=== PATIENT | male | born 1975 | race Caucasian/White ===

== ENCOUNTER 2018-03-31 01:53 | Emergency (ER) | payer SELFPAY ==
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
[2018-03-31] MEDS: KEFLEX 500 MG PO ONE (04:22)
[2018-03-31] MEDS ORDERED: KEFLEX 500 MG ONE (04:22)
[2018-03-31] MEDS ORDERED: BACIGUENT PACKET ONE (04:33)
[2018-03-31] MEDS: BACIGUENT PACKET TP ONE (04:34)
[2018-03-31] MEDS: Bactroban OINTMENT TP ONE (04:46)
[2018-03-31 04:51] VITALS: BP 118/65; PULSE 86; O2SAT 97
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
== END 2018-03-31 04:41 | disposition home or self-care (01) ==
LOC: ED 01:53
DX: S81.032A Puncture wound without foreign body, left knee, initial encounter (principal); W45.0XXA Nail entering through skin, initial encounter
CPT/HCPCS: 73562; 99283; A9270-GY

== ENCOUNTER 2018-04-06 03:38 | Emergency (ER) | payer SELFPAY ==
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
[2018-04-06 04:22] LABS: Basophil (Absolute #) 0.06 (0-0.4); Eosinophil % 2.2 % (0.00-5.0); Eosinophil (Absolute #) 0.13 (0-0.5); Granulocyte Absolute (ANC) 3.18 (1.4-6.9); Granulocytes % 52.5 % (36.0-66.0); Hematocrit 35.2 % (42-50); Hemoglobin 11.7 gm/dl (12.5-18.0); Lymphocyte (Absolute #) 2.22 (1.0-4.6); Lymphocytes % 36.8 % (24.0-44.0); Mean Cell Volume 98.9 fl (78-100); Mean Corpuscular Hgb Concent. 33.2 g/dl (32-36); Mean Platelet Volume 9.9 fl (6-9.5); Monocyte (Absolute #) 0.45 (0.0-1.3); Monocytes % 7.5 % (0.0-12.0); Platelet Count 322 K/mm3 (150-450); Red Blood Count 3.56 M/mm3 (4.1-5.6); Red Cell Distribution Width 14.1 % (11.5-14.0)
[2018-04-06 04:40] LABS: ALBUMIN 4.6 g/dL (3.5-5.0); ALKALINE PHOSPHATASE 48 U/L (38-126); ANION GAP 16.9 MEQ/L (5-15); BLOOD UREA NITROGEN 15 mg/dL (9-20); CHLORIDE 112 mmol/L (98-107); Calcium 9.1 mg/dL (8.4-10.2); Carbon Dioxide 23 mmol/L (22-30); ETHYL ALCOHOL 223 mg/dL (0-10); Glucose 94 mg/dL (74-106); Potassium 4.2 mmol/L (3.5-5.1); SGOT/AST 25 U/L (17-59); SGPT/ALT 18 U/L (0-50); SODIUM 148 mmol/L (137-145); Total Protein 7.1 g/dL (6.3-8.2)
[2018-04-06 04:49] LABS: ACETAMINOPHEN < 10 ug/ml (10-30); SALICYLATE < 1.0 mg/dL (2-20)
[2018-04-06 04:50] LABS: Mean Corpuscular Hemoglobin 32.8 pg (26-32)
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
[2018-04-06 08:41] LABS: Amphetamine,Urine POSITIVE (NEGATIVE); Barbiturate,Urine NEGATIVE (NEGATIVE); Benzodiazepine,Urine POSITIVE (NEGATIVE); Cocaine,Urine NEGATIVE (NEGATIVE); Methadone,Urine NEGATIVE (NEGATIVE); Opiate,Urine NEGATIVE (NEGATIVE); PCP,Urine NEGATIVE (NEGATIVE); THC,Urine POSITIVE (NEGATIVE)
[2018-04-06 08:43] VITALS: BP 123/67
[2018-04-06] MEDS ORDERED: VITAMIN B-1 100 MG PO ONE (09:25)
[2018-04-06 09:29] VITALS: PULSE 88; O2SAT 98
[2018-04-06] MEDS ORDERED: Nicoderm CQ 21 MG TOP ONE (09:31)
== END 2018-04-06 10:19 | disposition short-term general hospital (02) ==
LOC: ED 03:38
PROC: 0HQ0XZZ Repair Scalp Skin, External Approach (ICD-10-PCS; principal; 2018-04-06)
DX: S01.01XA Laceration without foreign body of scalp, initial encounter (principal); F32.9 Major depressive disorder, single episode, unspecified; S00.93XA Contusion of unspecified part of head, initial encounter; F10.129 Alcohol abuse with intoxication, unspecified; Y90.6 Blood alcohol level of 120-199 mg/100 ml; F15.10 Other stimulant abuse, uncomplicated; R51 Headache
CPT/HCPCS: 12002; 36415; 70450; 72125; 80053; 80307; 85025; 90791; 93005; 99285; G0481; Q3014; A9270-GY; G0480

== ENCOUNTER 2018-04-16 18:16 | Emergency (ER) | payer SELFPAY ==
[2018-04-16 18:24] VITALS: BP 133/82; PULSE 110; O2SAT 97
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
[2018-04-16] MEDS ORDERED: Sodium Chloride 0.9% 1000 ML 1,000 ML ONE (19:05)
[2018-04-16] MEDS: Sodium Chloride 0.9% 1000 ML 1,000 ML IV STA (19:16)
[2018-04-16 19:22] LABS: Hematocrit 36.3 % (42-50); Hemoglobin 12.2 gm/dl (12.5-18.0); Mean Cell Volume 97.6 fl (78-100); Mean Corpuscular Hgb Concent. 33.6 g/dl (32-36); Platelet Count 279 K/mm3 (150-450); Red Blood Count 3.72 M/mm3 (4.1-5.6); Red Cell Distribution Width 13.2 % (11.5-14.0); White Blood Count 6.3 K/mm3 (4.0-10.5)
[2018-04-16 19:31] LABS: Mean Corpuscular Hemoglobin 32.7 pg (26-32)
[2018-04-16 19:45] LABS: ALBUMIN 4.6 g/dL (3.5-5.0); ALKALINE PHOSPHATASE 50 U/L (38-126); ANION GAP 16.9 MEQ/L (5-15); BILIRUBIN,TOTAL < 0.10 mg/dL (0.2-1.3); BLOOD UREA NITROGEN 22 mg/dL (9-20); CHLORIDE 111 mmol/L (98-107); Calcium 9.1 mg/dL (8.4-10.2); Carbon Dioxide 24 mmol/L (22-30); Creatinine 1 0.58 mg/dL (0.66-1.25); ETHYL ALCOHOL 254 mg/dL (0-10); Glucose 98 mg/dL (74-106); Potassium 3.8 mmol/L (3.5-5.1); SGOT/AST 22 U/L (17-59); SGPT/ALT 18 U/L (0-50); SODIUM 148 mmol/L (137-145)
[2018-04-16 20:23] LABS: Appearance CLEAR (CLEAR); Bilirubin NEGATIVE (NEGATIVE); Blood NEGATIVE Ery/ul (0-5); Glucose NEGATIVE (NEGATIVE); Ketones NEGATIVE (NEGATIVE); Leukocyte Esterase NEGATIVE (NEGATIVE); Nitrite NEGATIVE (NEGATIVE); Protein,Urine Dip NEGATIVE (Negative); Specific Gravity 1.015 (1.005-1.025); Urobilinogen NORMAL mg/dL (0-1)
[2018-04-16 20:36] LABS: Amphetamine,Urine NEGATIVE (NEGATIVE); Barbiturate,Urine NEGATIVE (NEGATIVE); Benzodiazepine,Urine NEGATIVE (NEGATIVE); Cocaine,Urine NEGATIVE (NEGATIVE); Methadone,Urine NEGATIVE (NEGATIVE); Opiate,Urine NEGATIVE (NEGATIVE); PCP,Urine NEGATIVE (NEGATIVE); THC,Urine NEGATIVE (NEGATIVE)
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
== END 2018-04-16 20:44 | disposition home or self-care (01) ==
LOC: ED 18:16
DX: F10.120 Alcohol abuse with intoxication, uncomplicated (principal); S59.912A Unspecified injury of left forearm, initial encounter; V49.9XXA Car occupant (driver) (passenger) injured in unspecified traffic accident, initial encounter
CPT/HCPCS: 36000; 36415; 70450; 72125; 80053; 80307; 81002; 85027; 96360; 96361; 96374; 99284; G0480

== ENCOUNTER 2018-05-26 20:59 | Observation (INO) | payer OTHER ==
[2018-05-26] MEDS ORDERED: THIAMINE 200 MG/2 ML IV ONE (21:33)
[2018-05-26] MEDS ORDERED: Sodium Chloride 0.9% 1000 ML 1,000 ML IV STA (21:33)
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
[2018-05-26 21:55] LABS: BASOPHIL % 0.6 % (0.0-0.4); Basophil (Absolute #) 0.04 (0-0.4); Eosinophil % 3.1 % (0.00-5.0); Eosinophil (Absolute #) 0.22 (0-0.5); Granulocyte Absolute (ANC) 3.49 (1.4-6.9); Granulocytes % 49.4 % (36.0-66.0); Hematocrit 38.9 % (42-50); Hemoglobin 12.9 gm/dl (12.5-18.0); Lymphocyte (Absolute #) 2.85 (1.0-4.6); Lymphocytes % 40.4 % (24.0-44.0); Mean Cell Volume 97.5 fl (78-100); Mean Corpuscular Hemoglobin 32.3 pg (26-32); Mean Corpuscular Hgb Concent. 33.2 g/dl (32-36); Mean Platelet Volume 10.4 fl (6-9.5); Monocyte (Absolute #) 0.46 (0.0-1.3); Monocytes % 6.5 % (0.0-12.0); Platelet Count 293 K/mm3 (150-450); Red Blood Count 3.99 M/mm3 (4.1-5.6); White Blood Count 7.1 K/mm3 (4.0-10.5)
[2018-05-26] MEDS ORDERED: THIAMINE 200 MG/2 ML ONE (21:57)
[2018-05-26] MEDS ORDERED: Sodium Chloride 0.9% 1000 ML 1,000 ML ONE ×2 (21:57→23:48)
[2018-05-26 22:12] LABS: Amphetamine,Urine NEGATIVE (NEGATIVE); Barbiturate,Urine NEGATIVE (NEGATIVE); Benzodiazepine,Urine NEGATIVE (NEGATIVE); Cocaine,Urine NEGATIVE (NEGATIVE); Methadone,Urine NEGATIVE (NEGATIVE); Opiate,Urine NEGATIVE (NEGATIVE); PCP,Urine NEGATIVE (NEGATIVE); THC,Urine NEGATIVE (NEGATIVE)
[2018-05-26 22:17] LABS: ALBUMIN 4.8 g/dL (3.5-5.0); ALKALINE PHOSPHATASE 55 U/L (38-126); ANION GAP 17.7 MEQ/L (5-15); BLOOD UREA NITROGEN 16 mg/dL (9-20); CHLORIDE 108 mmol/L (98-107); Carbon Dioxide 27 mmol/L (22-30); Creatinine 1 0.63 mg/dL (0.66-1.25); ETHYL ALCOHOL 210 mg/dL (0-10); Glucose 94 mg/dL (74-106); Potassium 3.9 mmol/L (3.5-5.1); SGOT/AST 25 U/L (17-59); SGPT/ALT 21 U/L (0-50); SODIUM 148 mmol/L (137-145); Total Protein 7.1 g/dL (6.3-8.2)
[2018-05-26 22:21] LABS: ACETAMINOPHEN < 10 ug/ml (10-30); SALICYLATE < 1.0 mg/dL (2-20)
[2018-05-26] MEDS ORDERED: Sodium Chloride 0.9% 1000 ML 1,000 ML IV SCH (23:45)
[2018-05-27 02:23] LABS: ETHYL ALCOHOL 115 mg/dL (0-10)
[2018-05-27 02:33] LABS: ACETAMINOPHEN < 10 ug/ml (10-30)
[2018-05-27] MEDS ORDERED: Sodium Chloride 0.9% 1000 ML 1,000 ML IV SCH (03:10)
[2018-05-27] MEDS ORDERED: Ativan 1 MG PO PRN (03:10)
[2018-05-27 06:15] LABS: BASOPHIL % 0.8 % (0.0-0.4); Basophil (Absolute #) 0.05 (0-0.4); Eosinophil % 3.9 % (0.00-5.0); Eosinophil (Absolute #) 0.25 (0-0.5); Granulocyte Absolute (ANC) 3.46 (1.4-6.9); Granulocytes % 53.4 % (36.0-66.0); Hematocrit 37.1 % (42-50); Hemoglobin 12.2 gm/dl (12.5-18.0); Lymphocyte (Absolute #) 2.15 (1.0-4.6); Lymphocytes % 33.2 % (24.0-44.0); Mean Cell Volume 98.4 fl (78-100); Mean Corpuscular Hgb Concent. 32.9 g/dl (32-36); Mean Platelet Volume 10.8 fl (6-9.5); Monocyte (Absolute #) 0.56 (0.0-1.3); Monocytes % 8.7 % (0.0-12.0); Platelet Count 275 K/mm3 (150-450); Red Blood Count 3.77 M/mm3 (4.1-5.6); Red Cell Distribution Width 13.1 % (11.5-14.0); White Blood Count 6.5 K/mm3 (4.0-10.5)
[2018-05-27 06:16] LABS: Mean Corpuscular Hemoglobin 32.3 pg (26-32)
[2018-05-27 06:24] LABS: ALBUMIN 4.1 g/dL (3.5-5.0); ALKALINE PHOSPHATASE 50 U/L (38-126); ANION GAP 12.2 MEQ/L (5-15); BLOOD UREA NITROGEN 15 mg/dL (9-20); CHLORIDE 108 mmol/L (98-107); Calcium 8.4 mg/dL (8.4-10.2); Carbon Dioxide 27 mmol/L (22-30); Creatinine 1 0.68 mg/dL (0.66-1.25); Glucose 113 mg/dL (74-106); Potassium 3.9 mmol/L (3.5-5.1); SGOT/AST 20 U/L (17-59); SGPT/ALT 19 U/L (0-50); SODIUM 143 mmol/L (137-145); Total Protein 6.2 g/dL (6.3-8.2)
[2018-05-27 07:47] VITALS: O2SAT 100
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
[2018-05-27] MEDS ORDERED: VITAMIN B-1 100 MG PO SCH (10:00)
[2018-05-27 11:55] VITALS: PULSE 81
[2018-05-27 13:14] VITALS: BP 130/67
== END 2018-05-27 13:55 ==
LOC: ED 20:59 → ICU 05-27 03:09
PROVIDERS: ADMIT Family Medicine; ATTEND Family Medicine
DX: R45.851 Suicidal ideations (principal); F10.920 Alcohol use, unspecified with intoxication, uncomplicated; F10.10 Alcohol abuse, uncomplicated; F19.10 Other psychoactive substance abuse, uncomplicated; F32.9 Major depressive disorder, single episode, unspecified; Z79.899 Other long term (current) drug therapy
CPT/HCPCS: 36415; 80053; 80307; 85025; 90791; 93005; 93041; 93268; 96360; 96361; 96374; 99285; G0481; A9270-GY; G0378; G0480

== ENCOUNTER 2019-03-12 15:52 | Emergency (ER) | payer OTHER ==
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
[2019-03-12 16:57] LABS: Barbiturate,Urine NEGATIVE (NEGATIVE); Benzodiazepine,Urine NEGATIVE (NEGATIVE); Cocaine,Urine NEGATIVE (NEGATIVE); Methadone,Urine NEGATIVE (NEGATIVE); Opiate,Urine NEGATIVE (NEGATIVE); PCP,Urine NEGATIVE (NEGATIVE); THC,Urine NEGATIVE (NEGATIVE)
[2019-03-12 17:26] VITALS: PULSE 97
[2019-03-12 17:30] VITALS: O2SAT 90
[2019-03-12 17:33] LABS: Amphetamine,Urine POSITIVE (NEGATIVE)
[2019-03-12 18:07] VITALS: BP 114/77
== END 2019-03-12 18:08 | disposition home or self-care (01) ==
LOC: ED 15:52
DX: F10.129 Alcohol abuse with intoxication, unspecified (principal); F15.20 Other stimulant dependence, uncomplicated; Z02.89 Encounter for other administrative examinations
CPT/HCPCS: 36415; 80307; 93005; 99284; G0480

== ENCOUNTER 2021-10-02 10:31 | Emergency (ER) | payer MEDICAID, OTHER ==
[2021-10-02] MEDS ORDERED: TORAdol 30 mg Injection IM ONE (10:49)
--- NOTE | 2021-10-02 10:57 | ERPHSYRPT ---
- History of Present Illness Source: patient Exam Limitations: no limitations Patient Subjective Stated Complaint: Pt states "On saturday I threw something in the dumpster and it was empty then I realized I needed it and when I jumped on the edge of the dumpster I hit my left lower ribs and it dropped me. Now they really hurt." Triage Nursing Assessment: Pt presented alert and oriented X 3, skin pwd Pt ambulates with an upright steady gait, able to speak in clear full sentences. Pt in no apparent respiratory distress. Physician History: 45 yo wm w L sided thoracic pain rated 10 on scale after fall against trash can on 09/27/21. Pt denies LOC/BHANDARI-head injury/C,T,L-spine pain/Hip pain/Upper-LE pain. Allergies/Adverse Reactions: No Known Drug Allergies Allergy (Verified 03/12/19 16:08) Home Medications: Gabapentin 300 mg PO BID 04/16/18 [History] lamoTRIgine [Subvenite] 25 mg PO DAILY 05/26/18 [History] Escitalopram Oxalate 10 mg [Lexapro 10 MG] 20 mg PO DAILY 03/12/19 [History] Lorazepam [Ativan] 0.5 mg PO BID 03/12/19 [History] Hx Tetanus, Diphtheria Vaccination/Date Given: Yes Hx Influenza Vaccination/Date Given: No Hx Pneumococcal Vaccination/Date Given: No Immunizations Up to Date: Yes Travel Risk - International Travel Have you traveled outside of the country in past 3 weeks: No - Coronavirus Screening Are you exhibiting any of the following symptoms?: No Close contact with a COVID-19 positive Pt in past 14-21 Days: No - Vaccine Status Have you recieved a Covid-19 vaccination: No - Past Medical History Pertinent Past Medical History: Yes Neurological History: No Pertinent History ENT History: No Pertinent History Cardiac History: No Pertinent History Respiratory History: No Pertinent History Endocrine Medical History: No Pertinent History Musculoskeletal History: No Pertinent History, Other GI Medical History: No Pertinent History History: No Pertinent History Psycho-Social History: Bipolar, Depression Other Medical History: schizo, suicidal, broken ribs - Past Surgical History Past Surgical History: Yes Neuro Surgical History: No Pertinent History Cardiac: No Pertinent History Respiratory: No Pertinent History Gastrointestinal: No Pertinent History Genitourinary: No Pertinent History - Social History Smoking Status: Current every day smoker How long have you smoked: 32 years Exposure to second hand smoke: Yes Drug Use: methamphetamines, other Patient Lives Alone: No - Nursing Vital Signs Nursing Vital Signs: Initial Vital Signs Temperature 97.9 F 10/02/21 10:36 Pulse Rate 116 H 10/02/21 10:36 Respiratory Rate 20 10/02/21 10:36 Blood Pressure 153/95 10/02/21 10:36 O2 Sat by Pulse Oximetry 99 10/02/21 10:36 Pain Scale Pain Intensity 5 - Physical Exam SpO2: 99 - Course Nursing assessment & vital signs reviewed: Yes - CT Exams Chest CT Interpretation: Discussed w/radiologist (Nothing acute/CARRILLO/Old granulomatous dz/Biapical cystic changes) Ordered Tests: Active Orders 24 hr Category Date Time Status CHEST WITHOUT CONTRAST [CT] Stat Exams 10/02/21 10:48 Completed Medication Summary Discontinued Medications Generic Name Dose Route Start Last Admin Trade Name Freq PRN Reason Stop Dose Admin Ketorolac Tromethamine 30 mg 10/02/21 10:49 10/02/21 11:18 Ketorolac Tromethamine 30 Mg/Ml Inj IM 10/02/21 10:50 30 mg STAT ONE Administration Ketorolac Tromethamine Confirm 10/02/21 11:16 Ketorolac Tromethamine 30 Mg/Ml Inj Administered 10/02/21 11:17 Dose 30 mg .ROUTE .STK-MED ONE - Progress Progress: improved Progress Note: 10/02/21 11:23 30mg IM Toradol Counseled pt/family regarding: diagnosis, need for follow-up, rad results - Departure Departure Disposition: Home Clinical Impression: Contusion, chest wall Condition: Stable Critical Care Time: No Referrals: DOCTOR,NO FAMILY [Primary Care Provider] - Follow up/PCP as directed Instructions: Blunt Chest Trauma (DC) Additional Instructions: Toradol as needed for pain Follow up with your family MD Return to ER for increasing shortness of breath or temperature greater than 100.5 Prescriptions: Ketorolac Tromethamine [Toradol] 10 mg PO TID PRN #10 tablet PRN Reason: Pain
[2021-10-02] MEDS ORDERED: TORAdol 30 mg Injection ONE (11:16)
--- NOTE | 2021-10-02 11:16 | XRAY ---
Indication: Left rib pain following fall. Multiple contiguous images obtained through the chest without contrast. Comparison: None Lungs are inflated with minimal biapical subpleural cystic changes. No suspicious pulmonary mass, infiltrate, effusion, or pneumothorax. Heart is not enlarged. Aorta is normal in course and caliber. Tiny right hilar calcified node. No pathologic mediastinal lymphadenopathy. Bony thorax intact. Limited upper abdomen demonstrates fatty liver and a few splenic calcified granulomas. Impression: 1. Minimal biapical subpleural cystic changes, fatty liver, and old granulomatous disease. 2. Remaining CT chest without contrast exam is negative.
[2021-10-02 11:28] VITALS: BP 149/92; PULSE 110
[2021-10-02 11:29] VITALS: O2SAT 99
== END 2021-10-02 11:36 | disposition home or self-care (01) ==
LOC: ED 10:31
DX: S20.212A Contusion of left front wall of thorax, initial encounter (principal); W18.09XA Striking against other object with subsequent fall, initial encounter; Z72.0 Tobacco use
CPT/HCPCS: 71250; 96372; 99284; J1885

== ENCOUNTER 2021-10-20 09:56 | Emergency (ER) | payer OTHER ==
--- NOTE | 2021-10-20 10:00 | ERPHSYRPT ---
- History of Present Illness Time Seen by Provider: 10/20/21 10:00 Historian: patient Exam Limitations: no limitations Physician History: This is a 46-year-old white male patient without a primary care provider who presents to the emergency department with sudden onset of generalized abdominal pain described as burning and cramping. He states that the pain was sudden onset at 3 AM this morning prior to arrival. He had associated vomiting but no diarrhea. The pain radiates into his chest bilaterally. He is never had any like this before. He has no coronary artery disease. He does smoke cigarettes daily. He has had recent methamphetamine use. He has a history of schizophrenia, bipolar disease and depression. Timing/Duration: today Activities at Onset: none Quality: burning, cramping Location: epigastric, abdomen Severity of Pain-Max: moderate Severity of Pain-Current: moderate Modifying Factors: Improves With: nothing Associated Symptoms: nausea, vomiting Prior Chest Pain/Cardiac Workup: no prior chest pain Nitro Today/Relief: no nitro taken today Aspirin Treatment Today: no aspirin today Allergies/Adverse Reactions: No Known Drug Allergies Allergy (Verified 03/12/19 16:08) Home Medications: Aripiprazole 10 mg [Abilify 10 MG] 10 mg PO DAILY 10/20/21 [History] Hx Tetanus, Diphtheria Vaccination/Date Given: Yes Hx Influenza Vaccination/Date Given: No Hx Pneumococcal Vaccination/Date Given: No Travel Risk - International Travel Have you traveled outside of the country in past 3 weeks: No - Coronavirus Screening Are you exhibiting any of the following symptoms?: No Close contact with a COVID-19 positive Pt in past 14-21 Days: No - Vaccine Status Have you recieved a Covid-19 vaccination: No - Review of Systems Constitutional: No Symptoms Eyes: No Symptoms Ears, Nose, & Throat: No Symptoms Respiratory: No Symptoms Cardiac: Chest Pain Abdominal/Gastrointestinal: Abdominal Pain, Nausea, Vomiting Genitourinary Symptoms: No Symptoms Musculoskeletal: No Symptoms Skin: No Symptoms Neurological: No Symptoms Psychological: No Symptoms Endocrine: No Symptoms Hematologic/Lymphatic: No Symptoms Immunological/Allergic: No Symptoms All Other Systems: Reviewed and Negative - Past Medical History Pertinent Past Medical History: Yes Neurological History: No Pertinent History ENT History: No Pertinent History Cardiac History: No Pertinent History Respiratory History: No Pertinent History Endocrine Medical History: No Pertinent History Musculoskeletal History: No Pertinent History, Other GI Medical History: No Pertinent History History: No Pertinent History Psycho-Social History: Bipolar, Depression Other Medical History: schizo, suicidal, broken ribs - Past Surgical History Past Surgical History: Yes Neuro Surgical History: No Pertinent History Cardiac: No Pertinent History Respiratory: No Pertinent History Gastrointestinal: No Pertinent History Genitourinary: No Pertinent History - Social History Smoking Status: Current every day smoker How long have you smoked: 32 years Exposure to second hand smoke: Yes Drug Use: methamphetamines, other Patient Lives Alone: No - Nursing Vital Signs Nursing Vital Signs: Initial Vital Signs Temperature 97.1 F 10/20/21 09:57 Pulse Rate 89 10/20/21 09:57 Respiratory Rate 20 10/20/21 09:57 Blood Pressure 137/73 10/20/21 09:57 O2 Sat by Pulse Oximetry 100 10/20/21 09:57 Pain Scale Pain Intensity 6 - Physical Exam General Appearance: no apparent distress, alert, anxiety Eye Exam: PERRL/EOMI, eyes nml inspection Ears, Nose, Throat Exam: normal ENT inspection, moist mucous membranes Neck Exam: normal inspection, non-tender, supple, full range of motion Respiratory Exam: normal breath sounds, chest tenderness, lungs clear, airway intact, No respiratory distress Cardiovascular Exam: regular rate/rhythm, normal heart sounds, normal peripheral pulses Gastrointestinal/Abdomen Exam: soft, normal bowel sounds, tenderness, guarding, No rebound Rectal Exam: not done Back Exam: normal inspection, normal range of motion, No CVA tenderness, No vertebral tenderness Extremity Exam: normal inspection, normal range of motion, pelvis stable Neurologic Exam: alert, oriented x 3, cooperative, laboratory manager II-XII nml as tested, normal mood/affect, nml cerebellar function, nml station & gait, sensation nml Skin Exam: normal color, warm, dry Lymphatic Exam: No adenopathy SpO2 Interpretation: normal O2 Delivery: Room Air Ordered Tests: Active Orders 24 hr Category Date Time Status AMA [Release AMA] OM.NOW Care 10/20/21 11:46 Ordered Tax Professional STAT Care 10/20/21 10:01 Active EKG-ER Only STAT Care 10/20/21 10:01 Active IV Insertion STAT Care 10/20/21 10:01 Active Pulse Oximetry (ED) STAT Care 10/20/21 10:01 Active ABDOMEN AND PELVIS W/0 CONTRAS [CT] Stat Exams 10/20/21 10:02 Completed CHEST 1 VIEW (PORTABLE) Stat Exams 10/20/21 10:01 Completed AMYLASE Stat Lab 10/20/21 10:14 Completed CBC W DIFF Stat Lab 10/20/21 10:14 Completed CMP Stat Lab 10/20/21 10:14 Completed D-DIMER QUANTITATIVE Stat Lab 10/20/21 10:14 Completed LIPASE Stat Lab 10/20/21 10:14 Completed Lactic Acid Stat Lab 10/20/21 10:02 Completed NT PRO BNP Stat Lab 10/20/21 10:14 Completed PROTIME WITH INR Stat Lab 10/20/21 10:14 Completed TROPONIN Q3H Lab 10/20/21 10:14 Completed TROPONIN Q3H Lab 10/20/21 13:15 Ordered TROPONIN Q3H Lab 10/20/21 16:15 Ordered TROPONIN Q3H Lab 10/20/21 19:15 Ordered TROPONIN Q3H Lab 10/20/21 22:15 Ordered UA W/RFX UR CULTURE Stat Lab 10/20/21 11:15 Ordered Medication Summary Discontinued Medications Generic Name Dose Route Start Last Admin Trade Name Freq PRN Reason Stop Dose Admin Al Hydrox/Mg Hydrox/Simethicone Confirm 10/20/21 11:13 Mag Hydrox/Al Hydrox/Simeth 30 Ml Udcup Administered 10/20/21 11:14 Dose 30 ml .ROUTE .STK-MED ONE Aspirin 324 mg 10/20/21 10:01 10/20/21 10:08 Aspirin 81 Mg Tab.Chew PO 10/20/21 10:02 324 mg STAT ONE Administration Aspirin Confirm 10/20/21 10:04 Aspirin 81 Mg Tab.Chew Administered 10/20/21 10:05 Dose 324 mg .ROUTE .STK-MED ONE Hydromorphone HCl 1 mg 10/20/21 10:55 10/20/21 11:02 Hydromorphone 1 Mg/1ml Inj 1 Mg/Ml Syringe IV 10/20/21 10:56 1 mg STAT ONE Administration Hydromorphone HCl Confirm 10/20/21 11:01 Hydromorphone 1 Mg/1ml Inj 1 Mg/Ml Syringe Administered 10/20/21 11:02 Dose 1 mg .ROUTE .STK-MED ONE Sodium Chloride 1,000 mls @ 999 mls/hr 10/20/21 10:18 10/20/21 11:39 Sodium Chloride 0.9% 1000 Ml IV 10/20/21 11:18 Infused .Q1H1M STA Infusion Sodium Chloride Confirm 10/20/21 10:21 Sodium Chloride 0.9% 1000 Ml Administered 10/20/21 10:22 Dose 1,000 mls @ ud .ROUTE .STK-MED ONE Lidocaine HCl Confirm 10/20/21 11:13 Lidocaine Hcl Viscous 1 Ml Administered 10/20/21 11:14 Dose 15 ml .ROUTE .STK-MED ONE Magnesium Hydroxide 45 ml 10/20/21 11:09 10/20/21 11:13 Mag Hydrx/Alum Hyd/Simeth/Lido 45 Ml Bottle PO 10/20/21 11:10 45 ml STAT ONE Administration Ondansetron HCl 4 mg 10/20/21 10:55 10/20/21 11:02 Ondansetron Hcl 4 Mg/2 Ml Vial IV 10/20/21 10:56 4 mg STAT ONE Administration Ondansetron HCl Confirm 10/20/21 11:01 Ondansetron Hcl 4 Mg/2 Ml Vial Administered 10/20/21 11:02 Dose 4 mg .ROUTE .STK-MED ONE Lab/Rad Data: Laboratory Result Diagrams 10/20/21 10:14 10/20/21 10:14 Laboratory Results 10/20/21 10/20/21 10/20/21 Range/Units 10:14 10:14 10:14 WBC (4.0-10.5) K/mm3 RBC (4.1-5.6) M/mm3 Hgb (12.5-18.0) gm/dl Hct (42-50) % MCV (78-100) fl MCH (26-32) pg MCHC (32-36) g/dl RDW (11.5-14.0) % Plt Count (150-450) K/mm3 MPV (7.5-11.0) fl Gran % (36.0-66.0) % Eos # (Auto) (0-0.5) Absolute Lymphs (auto) (1.0-4.6) Absolute Monos (auto) (0.0-1.3) Lymphocytes % (24.0-44.0) % Monocytes % (0.0-12.0) % Eosinophils % (0.00-5.0) % Basophils % (0.0-0.4) % Absolute Granulocytes (1.4-6.9) Basophils # (0-0.4) PT 11.2 (9.4-12.5) SECONDS INR 0.95 (0.8-3.0) D-Dimer 248 (215-500) ng/mL Sodium 137 (137-145) mmol/L Potassium 4.6 (3.5-5.1) mmol/L Chloride 102 (98-107) mmol/L Carbon Dioxide 24 (22-30) mmol/L Anion Gap 16.4 H (5-15) MEQ/L BUN 22 H (9-20) mg/dL Creatinine 0.79 (0.66-1.25) mg/dL Estimated GFR > 60.0 ML/MIN Glucose 134 H (74-106) mg/dL Lactic Acid (0.4-2.0) Calcium 9.5 (8.4-10.2) mg/dL Total Bilirubin 0.40 (0.2-1.3) mg/dL AST 34 (17-59) U/L ALT 28 (0-50) U/L Alkaline Phosphatase 77 (38-126) U/L Troponin I < 0.012 (0.000-0.034) ng/mL NT-Pro-B Natriuret Pep < 11.5 (0-450) pg/mL Serum Total Protein 7.6 (6.3-8.2) g/dL Albumin 4.9 (3.5-5.0) g/dL Amylase 195 H (30-110) U/L Lipase 697 H (23-300) U/L 10/20/21 10/20/21 Range/Units 10:14 10:02 WBC 13.6 H (4.0-10.5) K/mm3 RBC 4.83 (4.1-5.6) M/mm3 Hgb 15.2 (12.5-18.0) gm/dl Hct 46.0 (42-50) % MCV 95.2 (78-100) fl MCH 31.5 (26-32) pg MCHC 33.0 (32-36) g/dl RDW 14.0 (11.5-14.0) % Plt Count 325 (150-450) K/mm3 MPV 9.9 (7.5-11.0) fl Gran % 80.9 H (36.0-66.0) % Eos # (Auto) 0.02 (0-0.5) Absolute Lymphs (auto) 1.98 (1.0-4.6) Absolute Monos (auto) 0.57 (0.0-1.3) Lymphocytes % 14.5 L (24.0-44.0) % Monocytes % 4.2 (0.0-12.0) % Eosinophils % 0.1 (0.00-5.0) % Basophils % 0.3 (0.0-0.4) % Absolute Granulocytes 11.03 H (1.4-6.9) Basophils # 0.04 (0-0.4) PT (9.4-12.5) SECONDS INR (0.8-3.0) D-Dimer (215-500) ng/mL Sodium (137-145) mmol/L Potassium (3.5-5.1) mmol/L Chloride (98-107) mmol/L Carbon Dioxide (22-30) mmol/L Anion Gap (5-15) MEQ/L BUN (9-20) mg/dL Creatinine (0.66-1.25) mg/dL Estimated GFR ML/MIN Glucose (74-106) mg/dL Lactic Acid 3.1 H (0.4-2.0) Calcium (8.4-10.2) mg/dL Total Bilirubin (0.2-1.3) mg/dL AST (17-59) U/L ALT (0-50) U/L Alkaline Phosphatase (38-126) U/L Troponin I (0.000-0.034) ng/mL NT-Pro-B Natriuret Pep (0-450) pg/mL Serum Total Protein (6.3-8.2) g/dL Albumin (3.5-5.0) g/dL Amylase (30-110) U/L Lipase (23-300) U/L - Progress Progress: improved Air Movement: good Progress Note: 10/20/21 11:47 Chest x-ray shows no acute cardiopulmonary process. CT scan of the abdomen pelvis without contrast shows mild jejunal enteritis. There is a adjacent mesenteric edema/stranding present. Medical decision making: This patient has pancreatitis as well as mild jejunal enteritis. The patient has a mild leukocytosis as well. Patient states at this time his symptoms have improved. However, I recommended that he be admitted into this hospital or to be transferred to another facility if he so desires to be admitted for observation/admission status. Patient is refusing. He wants to sign out a AGAINST MEDICAL ADVICE. I had a full discussion with the patient regarding the risks of leaving AGAINST MEDICAL ADVICE including worsening condition and possible . Patient voices understanding of this. He is still refusing. He will sign AGAINST MEDICAL ADVICE form. He was told that he may return to the emergency department anytime if he desires. Blood Culture(s) Obtained: No Counseled pt/family regarding: lab results, diagnosis, need for follow-up, rad results - Departure Departure Disposition: AMA Clinical Impression: Acute pancreatitis, Regional enteritis of jejunum Condition: Stable Critical Care Time: No Referrals: DOCTOR,NO FAMILY [Primary Care Provider] - Follow up/PCP as directed Additional Instructions: Clear liquids for 24 hours. Advance slowly. If your symptoms worsen return to the emergency department immediately. Follow-up with your primary care physician for persistent symptoms.
[2021-10-20] MEDS ORDERED: BABY ASPIRIN 81 MG CHEW PO ONE (10:01)
[2021-10-20] MEDS ORDERED: BABY ASPIRIN 81 MG CHEW ONE (10:04)
[2021-10-20 10:18] LABS: Absolute Neutrophil Ct (ANC) 11.03 (1.4-6.9); BASOPHIL % 0.3 % (0.0-0.4); Basophil (Absolute #) 0.04 (0-0.4); Eosinophil % 0.1 % (0.00-5.0); Eosinophil (Absolute #) 0.02 (0-0.5); Hemoglobin 15.2 gm/dl (12.5-18.0); Lymphocyte (Absolute #) 1.98 (1.0-4.6); Lymphocytes % 14.5 % (24.0-44.0); Mean Cell Volume 95.2 fl (78-100); Mean Corpuscular Hemoglobin 31.5 pg (26-32); Mean Platelet Volume 9.9 fl (7.5-11.0); Monocyte (Absolute #) 0.57 (0.0-1.3); Monocytes % 4.2 % (0.0-12.0); Neutrophil % 80.9 % (36.0-66.0); Platelet Count 325 K/mm3 (150-450); Red Blood Count 4.83 M/mm3 (4.1-5.6); White Blood Count 13.6 K/mm3 (4.0-10.5)
[2021-10-20] MEDS ORDERED: Sodium Chloride 0.9% 1000 ML 1,000 ML IV STA (10:18)
[2021-10-20] MEDS ORDERED: Sodium Chloride 0.9% 1000 ML 1,000 ML ONE (10:21)
[2021-10-20 10:24] LABS: INR 0.95 (0.8-3.0); PROTIME 11.2 SECONDS (9.4-12.5)
[2021-10-20 10:39] LABS: ALBUMIN 4.9 g/dL (3.5-5.0); ALKALINE PHOSPHATASE 77 U/L (38-126); AMYLASE 195 U/L (30-110); ANION GAP 16.4 MEQ/L (5-15); BLOOD UREA NITROGEN 22 mg/dL (9-20); CHLORIDE 102 mmol/L (98-107); Calcium 9.5 mg/dL (8.4-10.2); Carbon Dioxide 24 mmol/L (22-30); Creatinine 1 0.79 mg/dL (0.66-1.25); EST GLOMERULAR FILTRATION RATE > 60.0 ML/MIN; Glucose 134 mg/dL (74-106); LIPASE 697 U/L (23-300); NT PRO BNP < 11.5 pg/mL (0-450); Potassium 4.6 mmol/L (3.5-5.1); SGOT/AST 34 U/L (17-59); SGPT/ALT 28 U/L (0-50); SODIUM 137 mmol/L (137-145); Total Protein 7.6 g/dL (6.3-8.2)
[2021-10-20] MEDS ORDERED: Zofran 4 MG/2 ML VIAL IV ONE (10:55)
[2021-10-20] MEDS ORDERED: Hydromorphone 1 mg/ml Injection IV ONE (10:55)
[2021-10-20 10:59] VITALS: BP 119/86; O2SAT 98
[2021-10-20] MEDS ORDERED: Zofran 4 MG/2 ML VIAL ONE (11:01)
[2021-10-20] MEDS ORDERED: Hydromorphone 1 mg/ml Injection ONE (11:01)
[2021-10-20 11:04] VITALS: PULSE 92
--- NOTE | 2021-10-20 11:07 | XRAY ---
Indication: Chest and abdomen pain. Comparison: None Portable apical lordotic chest demonstrates normal heart and lungs. Bony thorax intact.
[2021-10-20] MEDS ORDERED: GI COCKTAIL 45 ML (Maalox/Lidocaine) PO ONE (11:09)
--- NOTE | 2021-10-20 11:12 | XRAY ---
Indication: Abdomen pain, nausea, and vomiting. Multiple contiguous axial images obtained through the abdomen and pelvis without contrast. Comparison: None Lung bases are clear. Heart not enlarged. Noncontrasted stomach and bowel loops appear nonobstructed. Left midabdomen jejunal bowel loops demonstrates mild wall thickening with minimal stranding favoring enteritis. Adjacent mesenteric edema/stranding with tiny fluid in left colic gutter presumed reactive. No walled off fluid collection or free air. Normal appendix. Mild fatty hepatomegaly measuring 22.7 cm and a few tiny splenic calcified granulomas. Remaining liver, gallbladder, pancreas, spleen, adrenal glands, kidneys, ureters, bladder, and aorta appear unremarkable for noncontrast exam. Osseous structures intact with minimal degenerative changes throughout the spine. No ventral or inguinal hernias. Impression: 1. Mild jejunal enteritis. Mild adjacent mesenteric edema/stranding and tiny fluid presumed reactive. 2. Incidental fatty hepatomegaly. 3. Remaining CT abdomen/pelvis without contrast exam is negative.
[2021-10-20] MEDS ORDERED: XYLOCAINE HCl Viscous ONE (11:13)
[2021-10-20] MEDS ORDERED: MAALOX ES 30 ML UNIT DOSE ONE (11:13)
[2021-10-20 11:54] LABS: Appearance SLIGHTLY CLOUDY (CLEAR); Bilirubin NEGATIVE (NEGATIVE); Blood NEGATIVE Ery/ul (0-5); Glucose NEGATIVE (NEGATIVE); Ketones TRACE (NEGATIVE); Leukocyte Esterase NEGATIVE (NEGATIVE); Mucus MANY /HPF (NEGATIVE); Nitrite NEGATIVE (NEGATIVE); Protein,Urine Dip NEGATIVE (Negative); Specific Gravity 1.024 (1.005-1.025); Urobilinogen NEGATIVE mg/dL (0-1)
[2021-10-20 11:55] LABS: Bacteria FEW /HPF (NEGATIVE); Epithelial Cells FEW /HPF (FEW); RBC 0-2 /HPF (0-2); WBC 0-2 /HPF (0-5)
== END 2021-10-20 11:53 | disposition left against medical advice (07) ==
LOC: ED 09:56
DX: K85.90 Acute pancreatitis without necrosis or infection, unspecified (principal); K50.00 Crohn's disease of small intestine without complications; Z72.0 Tobacco use; R07.9 Chest pain, unspecified
CPT/HCPCS: 36000; 36415; 71045; 74176; 80053; 81001; 82150; 83605; 83690; 83880; 84484; 85025; 85379; 85610; 93005; 93041; 94760; 96360; 96374; 96375; 99285; J1170; J2405; A9270-GY

== ENCOUNTER 2021-10-20 12:42 | Observation (INO) | payer OTHER ==
--- NOTE | 2021-10-20 12:58 | ERPHSYRPT ---
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 and the pain got worse." Triage Nursing Assessment: Pt presented alert and oriented X 3, skin pwd Pt ambulates with an upright steady gait, able to speak in clear full sentences pt left ama earlier today, all labs and scans were completed and pt was advised he was going to be admitted and he left. Physician History: This is a 46-year-old white male who has no primary care provider and left AGAINST MEDICAL ADVICE approximately 20 to 30 minutes prior to him returning. He had a diagnosis of acute pancreatitis as well as mild jejunal enteritis. Patient states he was feeling poorly and therefore he returned. No new changes since he left approximately 20 to 30 minutes ago. I spoke with Dr. Wright who is the physician on for unassigned patients. I reviewed the patient history and condition as well as results of radiographic and laboratory studies from his recent admission within the last hour. We will not be repeating his lab work or radiographic studies we will place him in observation. Timing/Duration: today Quality: aching Abdominal Pain Onset Location: generalized abdomen Pain Radiation: chest Severity of Pain-Max: mild (Mild to moderate) Severity of Pain-Current: mild (Mild to moderate) Associated Symptoms: nausea, vomiting Allergies/Adverse Reactions: No Known Drug Allergies Allergy (Verified 03/12/19 16:08) Home Medications: Aripiprazole 10 mg [Abilify 10 MG] 10 mg PO DAILY 10/20/21 [History] Hx Tetanus, Diphtheria Vaccination/Date Given: Yes Hx Influenza Vaccination/Date Given: No Hx Pneumococcal Vaccination/Date Given: No Immunizations Up to Date: Yes Travel Risk - International Travel Have you traveled outside of the country in past 3 weeks: No - Coronavirus Screening Are you exhibiting any of the following symptoms?: No Close contact with a COVID-19 positive Pt in past 14-21 Days: No - Vaccine Status Have you recieved a Covid-19 vaccination: No - Review of Systems Constitutional: No Symptoms Eyes: No Symptoms Ears, Nose, & Throat: No Symptoms Respiratory: No Symptoms Cardiac: No Symptoms Abdominal/Gastrointestinal: Abdominal Pain, Nausea, Vomiting Genitourinary Symptoms: No Symptoms Musculoskeletal: No Symptoms Skin: No Symptoms Neurological: No Symptoms Psychological: No Symptoms Endocrine: No Symptoms Hematologic/Lymphatic: No Symptoms Immunological/Allergic: No Symptoms All Other Systems: Reviewed and Negative - Past Medical History Pertinent Past Medical History: Yes Neurological History: No Pertinent History ENT History: No Pertinent History Cardiac History: No Pertinent History Respiratory History: No Pertinent History Endocrine Medical History: No Pertinent History Musculoskeletal History: No Pertinent History, Other GI Medical History: No Pertinent History History: No Pertinent History Psycho-Social History: Bipolar, Depression Other Medical History: schizo, suicidal, broken ribs - Past Surgical History Past Surgical History: Yes Neuro Surgical History: No Pertinent History Cardiac: No Pertinent History Respiratory: No Pertinent History Gastrointestinal: No Pertinent History Genitourinary: No Pertinent History - Social History Smoking Status: Current every day smoker How long have you smoked: 32 years Exposure to second hand smoke: Yes Drug Use: methamphetamines, other Patient Lives Alone: No - Nursing Vital Signs Nursing Vital Signs: Initial Vital Signs Temperature 97.8 F 10/20/21 12:52 Pulse Rate 85 10/20/21 12:52 Respiratory Rate 22 10/20/21 12:52 Blood Pressure 139/82 10/20/21 12:52 O2 Sat by Pulse Oximetry 100 10/20/21 12:52 Pain Scale Pain Intensity 8 - Physical Exam General Appearance: no apparent distress, alert, anxiety Eye Exam: PERRL/EOMI, eyes nml inspection Ears, Nose, Throat Exam: normal ENT inspection, moist mucous membranes Neck Exam: normal inspection, non-tender, supple, full range of motion Respiratory Exam: normal breath sounds, lungs clear, airway intact, No chest tenderness, No respiratory distress Cardiovascular Exam: regular rate/rhythm, normal heart sounds, normal peripheral pulses Gastrointestinal/Abdomen Exam: soft, normal bowel sounds, tenderness (Mild diffuse), guarding (Mild diffuse), No rebound Rectal Exam: not done Back Exam: normal inspection, normal range of motion, No CVA tenderness, No vertebral tenderness Extremity Exam: normal inspection, normal range of motion, pelvis stable Neurologic Exam: alert, oriented x 3, 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, 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, normal mood/affect, nml cerebellar function, nml station & gait, sensation nml Skin Exam: normal color, warm, dry Lymphatic Exam: No adenopathy SpO2 Interpretation: normal SpO2: 100 O2 Delivery: Room Air - Course Nursing assessment & vital signs reviewed: Yes Ordered Tests: Active Orders 24 hr Category Date Time Status Clean Catch Urine Specimen STAT Care 10/20/21 12:50 Active ETHYL ALCOHOL Stat Lab 10/20/21 12:53 Ordered Urine Triage Profile Stat Lab 10/20/21 Ordered - Progress Progress: unchanged Discussed with Dr.: Timmons - Departure Departure Disposition: Observation Clinical Impression: Encounter for medical screening examination, Acute pancreatitis, Regional enteritis of small bowel Condition: Stable Critical Care Time: No Referrals: DOCTOR,NO FAMILY [Primary Care Provider] - Follow up/PCP as directed
[2021-10-20 13:16] LABS: Amphetamine,Urine NEGATIVE (NEGATIVE); Barbiturate,Urine NEGATIVE (NEGATIVE); Benzodiazepine,Urine NEGATIVE (NEGATIVE); Methadone,Urine NEGATIVE (NEGATIVE); Opiate,Urine NEGATIVE (NEGATIVE); PCP,Urine NEGATIVE (NEGATIVE); THC,Urine POSITIVE (NEGATIVE)
[2021-10-20 13:27] LABS: Cocaine,Urine NEGATIVE (NEGATIVE)
[2021-10-20] MEDS ORDERED: TYLENOL 325 MG PO STA (13:29)
[2021-10-20] MEDS ORDERED: TYLENOL 325 MG ONE (13:49)
[2021-10-20 14:10] LABS: INFLUENZA A NEGATIVE (NEGATIVE); INFLUENZA B NEGATIVE (NEGATIVE); RESPIRATORY SYNCTIAL VIRUS NEGATIVE (Negative); SARS-CoV-2 Xpert Express NEGATIVE (NEGATIVE)
[2021-10-20] MEDS ORDERED: Ativan 2 MG/1 ML VIAL IV PRN ×2 (14:40→16:54)
[2021-10-20] MEDS ORDERED: Hydromorphone 1 mg/ml Injection IV PRN (14:40)
[2021-10-20] MEDS ORDERED: Zofran 4 MG/2 ML VIAL IV PRN (15:18)
[2021-10-20] MEDS: Sodium Chloride 0.9% 1000 ML 1,000 ML IV SCH ×2 (15:33→22:51)
[2021-10-20] MEDS: Hydromorphone 1 mg/ml Injection IV PRN ×2 (15:41→20:07)
--- NOTE | 2021-10-20 16:53 | PCM.HP ---
History of Present Illness - Chief Complaint Chief Complaint: Acute pancreatitis History of Present Illness: is a 46 year old male with no local physician, he developed pain in the epigastric region at around 3am this morning, sharp and stabbing and came on suddenly. He has a history of chronic alcohol use, drinks a signficant amount of hard liquor every day. sees the [facility] and takes abilify for "an anger issue". he has had no vomiting, no blood in the stool, no diarrhea or constipation. - Review of Systems Constitutional: No Fever, No Chills Respiratory: No Cough, No Short Of Breath Cardiac: No Chest Pain, No Edema, No Syncope Abdominal/Gastrointestinal: Abdominal Pain, Nausea, No Vomiting, No Diarrhea, No Constipation, No Hematemesis, No Hematochezia Genitourinary Symptoms: No Dysuria Skin: No Rash Psychological: Alcohol Abuse All Other Systems: Reviewed and Negative Medications & Allergies Home Medications: Home Medication List Aripiprazole 10 mg [Abilify 10 MG] 10 mg PO DAILY 10/20/21 [History Confirmed 10/20/21] Ondansetron ODT 4 MG [Zofran Odt 4 mg] 4 mg PO Q6H PRN PRN #10 tablet 10/20/21 [Rx Confirmed 10/20/21] Allergies/Adverse Reactions: Allergies Allergy/AdvReac Type Severity Reaction Status Date / Time No Known Drug Allergies Allergy Verified 03/12/19 16:08 - Past Medical History Past Medical History: Yes Neurological History: No Pertinent History ENT History: No Pertinent History Cardiac History: No Pertinent History Respiratory History: No Pertinent History Endocrine Medical History: No Pertinent History Musculoskelatal History: No Pertinent History, Other GI Medical History: No Pertinent History History: No Pertinent History Pyscho-Social History: Bipolar, Depression Comment: schizo, suicidal, broken ribs - Past Surgical History Past Surgical History: Yes Neuro Surgical History: No Pertinent History Cardiac History: No Pertinent History Respiratory Surgery: No Pertinent History GI Surgical History: No Pertinent History Genitourinary Surgical Hx: No Pertinent History Musculskeletal Surgical Hx: No Pertinent History Male Surgical History: No Pertinent History - Social History Smoking Status: Current every day smoker How long have you smoked: 32 years Exposure to second hand smoke: Yes Alcohol: Heavy, Daily Drug Use: none, other - Physical Exam Vital Signs: Vital Signs - 24 hr Temp Pulse Resp BP Pulse Ox 10/20/21 15:26 98.0 F 99 H 12 134/83 96 10/20/21 14:47 97.8 F 82 20 151/89 98 10/20/21 13:55 97.8 F 82 20 151/89 98 10/20/21 13:08 100 10/20/21 12:52 97.8 F 85 22 139/82 100 General Appearance: no apparent distress, alert Neurologic Exam: alert, oriented x 3, cooperative, normal mood/affect, nml cerebellar function, nml station & gait, sensation nml, No motor deficits Respiratory Exam: normal breath sounds, lungs clear, No respiratory distress Cardiovascular Exam: regular rate/rhythm, normal heart sounds, normal peripheral pulses Gastrointestinal/Abdomen Exam: soft, normal bowel sounds, tenderness (epigastrium), No distention, No guarding, No rebound Extremity Exam: normal inspection, normal range of motion, pelvis stable Skin Exam: normal color, warm, dry, No rash Results - Labs Lab/Micro Results: Lab Results-Last 24 Hours 10/20/21 10/20/21 10/20/21 Range/Units 10:00 12:45 13:24 Urine Opiates Level NEGATIVE (NEGATIVE) Ur Methadone NEGATIVE (NEGATIVE) Urine Barbiturates NEGATIVE (NEGATIVE) Ur Phencyclidine (PCP) NEGATIVE (NEGATIVE) Urine Amphetamine NEGATIVE (NEGATIVE) U Benzodiazepine Level NEGATIVE (NEGATIVE) Urine Cocaine NEGATIVE (NEGATIVE) Urine Marijuana (THC) POSITIVE (NEGATIVE) Ethyl Alcohol 140 H (0-10) mg/dL Influenza Type A Ag NEGATIVE (NEGATIVE) Influenza Type B Ag NEGATIVE (NEGATIVE) RSV (PCR) NEGATIVE (Negative) SARS-CoV-2 (PCR) NEGATIVE (NEGATIVE) Assessment/Plan (1) Acute pancreatitis Current Visit: Yes Status: Acute Assessment & Plan: keep NPO, IV fluids ordered and will repeat enzymes in the am. suspect alcohol use as exacerbating factor. patient admits to heavy alcohol consumption Code(s): K85.90 - ACUTE PANCREATITIS WITHOUT NECROSIS OR INFECTION, UNSP (2) Alcohol abuse Current Visit: Yes Status: Acute Assessment & Plan: patient has had trouble with anxiety and feeling jittery in the past when he stops drinking, sounds like he has a high risk of withdrawal, last drink was last night. will institute detox protocol and observe for signs/symptoms of withdrawal. Code(s): F10.10 - ALCOHOL ABUSE, UNCOMPLICATED
[2021-10-20] MEDS: VITAMIN B-1 100 MG PO SCH (18:22)
[2021-10-21] MEDS: Hydromorphone 1 mg/ml Injection IV PRN ×6 (00:31→21:30)
[2021-10-21 05:40] LABS: Absolute Neutrophil Ct (ANC) 12.02 (1.4-6.9); BASOPHIL % 0.1 % (0.0-0.4); Basophil (Absolute #) 0.02 (0-0.4); Eosinophil % 0.5 % (0.00-5.0); Eosinophil (Absolute #) 0.07 (0-0.5); Hematocrit 41.1 % (42-50); Hemoglobin 13.1 gm/dl (12.5-18.0); Lymphocyte (Absolute #) 1.04 (1.0-4.6); Lymphocytes % 7.5 % (24.0-44.0); Mean Cell Volume 97.2 fl (78-100); Mean Corpuscular Hgb Concent. 31.9 g/dl (32-36); Mean Platelet Volume 10.4 fl (7.5-11.0); Monocyte (Absolute #) 0.79 (0.0-1.3); Monocytes % 5.7 % (0.0-12.0); Neutrophil % 86.2 % (36.0-66.0); Platelet Count 253 K/mm3 (150-450); Red Blood Count 4.23 M/mm3 (4.1-5.6); Red Cell Distribution Width 13.7 % (11.5-14.0); White Blood Count 13.9 K/mm3 (4.0-10.5)
[2021-10-21 06:08] LABS: ALBUMIN 3.9 g/dL (3.5-5.0); ALKALINE PHOSPHATASE 85 U/L (38-126); AMYLASE 243 U/L (30-110); ANION GAP 11.6 MEQ/L (5-15); BLOOD UREA NITROGEN 20 mg/dL (9-20); CHLORIDE 102 mmol/L (98-107); Calcium 8.7 mg/dL (8.4-10.2); Carbon Dioxide 23 mmol/L (22-30); Creatinine 1 0.69 mg/dL (0.66-1.25); EST GLOMERULAR FILTRATION RATE > 60.0 ML/MIN; Glucose 91 mg/dL (74-106); LIPASE 634 U/L (23-300); SGOT/AST 24 U/L (17-59); SGPT/ALT 19 U/L (0-50); SODIUM 133 mmol/L (137-145)
[2021-10-21] MEDS: Sodium Chloride 0.9% 1000 ML 1,000 ML IV SCH ×3 (06:41→21:35)
--- NOTE | 2021-10-21 08:27 | PCM.NOTE ---
Date and Time: 10/21/21825 Subjective Assessment: patient reports some improvement in his epigastirc pain since admission. no new complaints. Objective Exam General Appearance: no apparent distress Neurologic Exam: alert, oriented x 3 Respiratory Exam: normal breath sounds, lungs clear, No respiratory distress Cardiovascular Exam: regular rate/rhythm, normal heart sounds Gastrointestinal/Abdomen Exam: soft, tenderness (epigastrium but improved) Extremity Exam: normal inspection, normal range of motion OBJECTIVE DATA Vital Signs: Vital Signs - 24 hr Temp Pulse Resp BP BP Pulse Ox 10/21/21 07:38 97.6 F 97 H 18 136/71 95 10/21/21 04:00 17 10/21/21 03:45 97.8 F 90 17 144/71 96 10/21/21 00:00 98.4 F 101 H 19 131/81 96 10/20/21 20:00 96.7 F 96 H 18 145/75 96 10/20/21 15:26 98.0 F 99 H 12 134/83 96 10/20/21 14:47 97.8 F 82 20 151/89 98 10/20/21 13:55 97.8 F 82 20 151/89 98 10/20/21 13:08 100 10/20/21 12:52 97.8 F 85 22 139/82 100 Pain Assessment - Last Documented Pain Intensity 0 Pain Scale Used FLACC Intake and Output: Intake & Output 10/18/21 10/19/21 10/20/21 10/21/21 11:59 11:59 11:59 11:59 Intake Total 1512 Output Total 400 Balance 1112 Weight 85.6 kg Lab Results: Lab Results-Last 24 Hours 10/20/21 10/20/21 10/20/21 Range/Units 10:00 12:45 13:24 WBC (4.0-10.5) K/mm3 RBC (4.1-5.6) M/mm3 Hgb (12.5-18.0) gm/dl Hct (42-50) % MCV (78-100) fl MCH (26-32) pg MCHC (32-36) g/dl RDW (11.5-14.0) % Plt Count (150-450) K/mm3 MPV (7.5-11.0) fl Gran % (36.0-66.0) % Eos # (Auto) (0-0.5) Absolute Lymphs (auto) (1.0-4.6) Absolute Monos (auto) (0.0-1.3) Lymphocytes % (24.0-44.0) % Monocytes % (0.0-12.0) % Eosinophils % (0.00-5.0) % Basophils % (0.0-0.4) % Absolute Granulocytes (1.4-6.9) Basophils # (0-0.4) Sodium (137-145) mmol/L Potassium (3.5-5.1) mmol/L Chloride (98-107) mmol/L Carbon Dioxide (22-30) mmol/L Anion Gap (5-15) MEQ/L BUN (9-20) mg/dL Creatinine (0.66-1.25) mg/dL Estimated GFR ML/MIN Glucose (74-106) mg/dL Calcium (8.4-10.2) mg/dL Total Bilirubin (0.2-1.3) mg/dL AST (17-59) U/L ALT (0-50) U/L Alkaline Phosphatase (38-126) U/L Serum Total Protein (6.3-8.2) g/dL Albumin (3.5-5.0) g/dL Amylase (30-110) U/L Lipase (23-300) U/L Urine Opiates Level NEGATIVE (NEGATIVE) Ur Methadone NEGATIVE (NEGATIVE) Urine Barbiturates NEGATIVE (NEGATIVE) Ur Phencyclidine (PCP) NEGATIVE (NEGATIVE) Urine Amphetamine NEGATIVE (NEGATIVE) U Benzodiazepine Level NEGATIVE (NEGATIVE) Urine Cocaine NEGATIVE (NEGATIVE) Urine Marijuana (THC) POSITIVE (NEGATIVE) Ethyl Alcohol 140 H (0-10) mg/dL Influenza Type A Ag NEGATIVE (NEGATIVE) Influenza Type B Ag NEGATIVE (NEGATIVE) RSV (PCR) NEGATIVE (Negative) SARS-CoV-2 (PCR) NEGATIVE (NEGATIVE) 10/21/21 10/21/21 Range/Units 04:30 04:30 WBC 13.9 H (4.0-10.5) K/mm3 RBC 4.23 (4.1-5.6) M/mm3 Hgb 13.1 (12.5-18.0) gm/dl Hct 41.1 L (42-50) % MCV 97.2 (78-100) fl MCH 31.0 (26-32) pg MCHC 31.9 L (32-36) g/dl RDW 13.7 (11.5-14.0) % Plt Count 253 (150-450) K/mm3 MPV 10.4 (7.5-11.0) fl Gran % 86.2 H (36.0-66.0) % Eos # (Auto) 0.07 (0-0.5) Absolute Lymphs (auto) 1.04 (1.0-4.6) Absolute Monos (auto) 0.79 (0.0-1.3) Lymphocytes % 7.5 L (24.0-44.0) % Monocytes % 5.7 (0.0-12.0) % Eosinophils % 0.5 (0.00-5.0) % Basophils % 0.1 (0.0-0.4) % Absolute Granulocytes 12.02 H (1.4-6.9) Basophils # 0.02 (0-0.4) Sodium 133 L (137-145) mmol/L Potassium 4.0 (3.5-5.1) mmol/L Chloride 102 (98-107) mmol/L Carbon Dioxide 23 (22-30) mmol/L Anion Gap 11.6 (5-15) MEQ/L BUN 20 (9-20) mg/dL Creatinine 0.69 (0.66-1.25) mg/dL Estimated GFR > 60.0 ML/MIN Glucose 91 (74-106) mg/dL Calcium 8.7 (8.4-10.2) mg/dL Total Bilirubin 1.40 H (0.2-1.3) mg/dL AST 24 (17-59) U/L ALT 19 (0-50) U/L Alkaline Phosphatase 85 (38-126) U/L Serum Total Protein 6.0 L (6.3-8.2) g/dL Albumin 3.9 (3.5-5.0) g/dL Amylase 243 H (30-110) U/L Lipase 634 H (23-300) U/L Urine Opiates Level (NEGATIVE) Ur Methadone (NEGATIVE) Urine Barbiturates (NEGATIVE) Ur Phencyclidine (PCP) (NEGATIVE) Urine Amphetamine (NEGATIVE) U Benzodiazepine Level (NEGATIVE) Urine Cocaine (NEGATIVE) Urine Marijuana (THC) (NEGATIVE) Ethyl Alcohol (0-10) mg/dL Influenza Type A Ag (NEGATIVE) Influenza Type B Ag (NEGATIVE) RSV (PCR) (Negative) SARS-CoV-2 (PCR) (NEGATIVE) Assessment/Plan (1) Acute pancreatitis Current Visit: Yes Status: Acute Assessment & Plan: modest improvement in enzymes since admission. keep NPO and repeat labs in the am Code(s): K85.90 - ACUTE PANCREATITIS WITHOUT NECROSIS OR INFECTION, UNSP (2) Alcohol abuse Current Visit: Yes Status: Acute Assessment & Plan: will need to monitor for symptoms of withdrawal based on his symptoms, last drink was more than 24 hours ago Code(s): F10.10 - ALCOHOL ABUSE, UNCOMPLICATED
[2021-10-21] MEDS: Abilify 10 MG PO SCH (09:12)
[2021-10-21] MEDS: VITAMIN B-1 100 MG PO SCH (09:12)
[2021-10-21] MEDS: TYLENOL 325 MG PO PRN ×2 (17:17→21:36)
[2021-10-22] MEDS: Hydromorphone 1 mg/ml Injection IV PRN ×2 (03:34→08:55)
[2021-10-22] MEDS: Sodium Chloride 0.9% 1000 ML 1,000 ML IV SCH (05:19)
[2021-10-22 07:02] LABS: Absolute Neutrophil Ct (ANC) 11.73 (1.4-6.9); BASOPHIL % 0.2 % (0.0-0.4); Basophil (Absolute #) 0.02 (0-0.4); Eosinophil % 0.7 % (0.00-5.0); Eosinophil (Absolute #) 0.09 (0-0.5); Hematocrit 37.1 % (42-50); Hemoglobin 11.8 gm/dl (12.5-18.0); Lymphocyte (Absolute #) 0.65 (1.0-4.6); Lymphocytes % 4.9 % (24.0-44.0); Mean Cell Volume 97.6 fl (78-100); Mean Corpuscular Hemoglobin 31.1 pg (26-32); Mean Corpuscular Hgb Concent. 31.8 g/dl (32-36); Mean Platelet Volume 10.6 fl (7.5-11.0); Monocyte (Absolute #) 0.82 (0.0-1.3); Monocytes % 6.2 % (0.0-12.0); Platelet Count 222 K/mm3 (150-450); Red Cell Distribution Width 13.7 % (11.5-14.0); White Blood Count 13.3 K/mm3 (4.0-10.5)
[2021-10-22 07:19] LABS: ALBUMIN 3.8 g/dL (3.5-5.0); ALKALINE PHOSPHATASE 91 U/L (38-126); AMYLASE 105 U/L (30-110); ANION GAP 10.1 MEQ/L (5-15); BLOOD UREA NITROGEN 12 mg/dL (9-20); CHLORIDE 101 mmol/L (98-107); Calcium 8.4 mg/dL (8.4-10.2); Carbon Dioxide 24 mmol/L (22-30); Creatinine 1 0.74 mg/dL (0.66-1.25); EST GLOMERULAR FILTRATION RATE > 60.0 ML/MIN; Glucose 80 mg/dL (74-106); LIPASE 115 U/L (23-300); Potassium 3.8 mmol/L (3.5-5.1); SGOT/AST 22 U/L (17-59); SGPT/ALT 14 U/L (0-50); SODIUM 132 mmol/L (137-145); Total Protein 6.3 g/dL (6.3-8.2)
--- NOTE | 2021-10-22 07:26 | PCM.NOTE ---
Date and Time: 10/22/21724 Subjective Assessment: patient feeling much better today, pain is nearly resolved. Objective Exam General Appearance: no apparent distress Neurologic Exam: alert, oriented x 3 Respiratory Exam: normal breath sounds, lungs clear, No respiratory distress Cardiovascular Exam: regular rate/rhythm, normal heart sounds Gastrointestinal/Abdomen Exam: soft, No tenderness, No distention, No guarding, No rebound OBJECTIVE DATA Vital Signs: Vital Signs - 24 hr Temp Pulse Resp BP Pulse Ox 10/22/21 07:15 97.3 F 88 16 124/68 95 10/22/21 04:00 18 10/22/21 03:37 97.7 F 96 H 18 142/72 95 10/22/21 00:00 96.0 F 89 16 120/59 95 10/21/21 20:00 96.4 F 94 H 16 106/55 95 10/21/21 16:00 97.8 F 103 H 18 131/77 96 10/21/21 11:50 97.1 F 94 H 16 131/60 97 10/21/21 07:38 97.6 F 97 H 18 136/71 95 Pain Assessment - Last Documented Pain Intensity 0 Pain Scale Used [facility] Intake and Output: Intake & Output 10/19/21 10/20/21 10/21/21 10/22/21 11:59 11:59 11:59 11:59 Intake Total 1512 3355 Output Total 400 Balance 1112 3355 Weight 85.6 kg 86.2 kg Lab Results: Lab Results-Last 24 Hours 10/22/21 10/22/21 Range/Units 05:45 05:45 WBC 13.3 H (4.0-10.5) K/mm3 RBC 3.80 L (4.1-5.6) M/mm3 Hgb 11.8 L (12.5-18.0) gm/dl Hct 37.1 L (42-50) % MCV 97.6 (78-100) fl MCH 31.1 (26-32) pg MCHC 31.8 L (32-36) g/dl RDW 13.7 (11.5-14.0) % Plt Count 222 (150-450) K/mm3 MPV 10.6 (7.5-11.0) fl Gran % 88.0 H (36.0-66.0) % Eos # (Auto) 0.09 (0-0.5) Absolute Lymphs (auto) 0.65 L (1.0-4.6) Absolute Monos (auto) 0.82 (0.0-1.3) Lymphocytes % 4.9 L (24.0-44.0) % Monocytes % 6.2 (0.0-12.0) % Eosinophils % 0.7 (0.00-5.0) % Basophils % 0.2 (0.0-0.4) % Absolute Granulocytes 11.73 H (1.4-6.9) Basophils # 0.02 (0-0.4) Sodium 132 L (137-145) mmol/L Potassium 3.8 (3.5-5.1) mmol/L Chloride 101 (98-107) mmol/L Carbon Dioxide 24 (22-30) mmol/L Anion Gap 10.1 (5-15) MEQ/L BUN 12 (9-20) mg/dL Creatinine 0.74 (0.66-1.25) mg/dL Estimated GFR > 60.0 ML/MIN Glucose 80 (74-106) mg/dL Calcium 8.4 (8.4-10.2) mg/dL Total Bilirubin 1.00 (0.2-1.3) mg/dL AST 22 (17-59) U/L ALT 14 (0-50) U/L Alkaline Phosphatase 91 (38-126) U/L Serum Total Protein 6.3 (6.3-8.2) g/dL Albumin 3.8 (3.5-5.0) g/dL Amylase 105 (30-110) U/L Lipase 115 (23-300) U/L Assessment/Plan (1) Acute pancreatitis Current Visit: Yes Status: Acute Assessment & Plan: resolved, will start a bland diet and repeat enzymes tomorrow, home tomorrow if tolerates well and enzymes are ok. Code(s): K85.90 - ACUTE PANCREATITIS WITHOUT NECROSIS OR INFECTION, UNSP (2) Alcohol abuse Current Visit: Yes Status: Acute Code(s): F10.10 - ALCOHOL ABUSE, UNCOMPLICATED
[2021-10-22] MEDS: Abilify 10 MG PO SCH (08:55)
[2021-10-22] MEDS: VITAMIN B-1 100 MG PO SCH (08:55)
[2021-10-22 11:35] VITALS: BP 122/67; PULSE 106; O2SAT 97
== END 2021-10-22 12:25 | disposition home or self-care (01) ==
LOC: ED 12:42 → MED SURG 14:30
PROVIDERS: ADMIT Family Medicine; ATTEND Family Medicine
DX: K85.90 Acute pancreatitis without necrosis or infection, unspecified (principal); F10.10 Alcohol abuse, uncomplicated; F17.200 Nicotine dependence, unspecified, uncomplicated; Z79.899 Other long term (current) drug therapy; Z20.828 Contact with and (suspected) exposure to other viral communicable diseases
CPT/HCPCS: 0241U; 36000; 36415; 80053; 80307; 82150; 83690; 85025; 99284; G0378; G0480; 71045; 74176; 81001; 83605; 83880; 84484; 85379; 85610; 93005; 93041; 94760; 96360; 96374; 96375; 99285; J1170; J2405; A9270-GY